=== PATIENT | female | born 1950 | race Caucasian/White ===

== ENCOUNTER → 2018-08-04 21:29 | Outpatient (CLI) | payer MEDICARE | END | disposition home or self-care (01) | LOC: D.MAMMO 10:30 | DX: Z12.31 Encounter for screening mammogram for malignant neoplasm of breast (principal) ==

== ENCOUNTER → 2018-09-01 19:00 | Outpatient (CLI) | payer MEDICARE | END | disposition home or self-care (01) | LOC: D.MAMMO 11:30 | DX: R92.8 Other abnormal and inconclusive findings on diagnostic imaging of breast (principal) ==

== ENCOUNTER 2019-03-09 09:00 | Outpatient (CLI) | payer MEDICARE | END 2019-03-09 10:00 | disposition home or self-care (01) | LOC: D.MAMMO 09:00 | PROVIDERS: ATTEND Family Medicine | DX: R92.8 Other abnormal and inconclusive findings on diagnostic imaging of breast (principal) ==

== ENCOUNTER 2019-10-19 08:00 | Outpatient (CLI) | payer MEDICARE | END 2019-10-19 23:59 | disposition home or self-care (01) | LOC: D.MAMMO 08:00 | PROVIDERS: ATTEND Family Medicine | DX: R92.8 Other abnormal and inconclusive findings on diagnostic imaging of breast (principal) ==

== ENCOUNTER 2020-07-12 09:38 | Inpatient (IN) | payer MEDICARE ==
[~2020-07-12] VITALS: Ht 165.1 cm; Wt 70.8 kg
[2020-07-12 10:43] LABS: BASOPHILS 0.5 % (0-2); HEMATOCRIT 43.1 % (36.0-48.0); HEMOGLOBIN 14.5 g/dL (12-16); IMMATURE GRANULOCYTES 1.9 % (0-5); LYMPHOCYTES 16.9 % (15-50); MCH 31.3 pg (26.0-34.0); MCHC 33.6 g/dL (31.0-37.0); MCV 93.1 fL (80.0-100.0); MEAN PLATELET VOLUME 11.7 fL (7.4-10.4); MONOCYTES 6.8 % (2-11); NEUTROPHILS 72.9 % (40-80); PLATELET COUNT 353 10x3/uL (130-400); RBC 4.63 10x6/uL (4.00-5.40); RDW 12.2 % (11.5-14.5); WBC 12.1 10x3/uL (4.8-10.8)
[2020-07-12 10:58] LABS: ALBUMIN 3.8 g/dL (3.4-5.0); BILIRUBIN - TOTAL 0.63 mg/dL (0.2-1.3); CALCIUM 9.4 mg/dL (8.5-10.1); CARBON DIOXIDE 27.8 mmol/L (21.0-32.0); CREATININE - SERUM 1.2 mg/dL (0.6-1.3); POTASSIUM - SERUM 3.9 mmol/L (3.5-5.1); PROTEIN - SERUM 8.2 g/dL (6.4-8.2)
[2020-07-12 10:59] LABS: BACTERIA MANY /hpf (NEGATIVE); BILIRUBIN NEGATIVE (NEGATIVE); EPITHELIAL CELLS 0-5 /hpf (0-5); GLUCOSE 1000 mg/dL (NEGATIVE); HYALINE CAST RARE /lpf (NONE SEEN); KETONE SMALL mg/dL (NEGATIVE); NITRITE POSITIVE (NEGATIVE); RED CELLS - URINE RARE /hpf (0-5); UROBILINOGEN NORMAL (NORMAL)
[2020-07-12 11:09] LABS: ANION GAP 14.1 mmol/L (8-16)
[2020-07-12 11:18] VITALS: BP 168/97
[2020-07-12 12:14] VITALS: BP 164/93; BMI 26.0
[2020-07-12 18:01] VITALS: BP 166/84
[2020-07-12 21:00] VITALS: BP 195/92
--- NOTE | 2020-07-13 04:18 | NUR ---
I have reviewed this patient and I concur with the Shift Assessment completed by the Licensed Practical Nurse today this shift.
[2020-07-13 07:21] LABS: ANION GAP 9.9 mmol/L (8-16); BILIRUBIN - TOTAL 0.36 mg/dL (0.2-1.3); CALCIUM 8.2 mg/dL (8.5-10.1); CARBON DIOXIDE 25.9 mmol/L (21.0-32.0); CREATININE - SERUM 0.9 mg/dL (0.6-1.3); MAGNESIUM - SERUM 1.8 mg/dL (1.8-2.4); PHOSPHOROUS 2.9 mg/dL (2.5-4.9); POTASSIUM - SERUM 3.8 mmol/L (3.5-5.1)
[2020-07-13 07:25] LABS: ALBUMIN 2.6 g/dL (3.4-5.0)
[2020-07-13] MEDS ORDERED: COLACE100 MG PO (07:46)
[2020-07-13] MEDS ORDERED: DURAGESIC1 EAC4 TRANSDERM (07:47)
[2020-07-13] MEDS ORDERED: GABAPENTIN300 MG PO (07:48)
[2020-07-13] MEDS ORDERED: ADVIL200 MG PO (07:49)
[2020-07-13] MEDS ORDERED: ATIVAN0.5 MG PO (07:50)
[2020-07-13] MEDS ORDERED: TORADOL10 MG PO (07:50)
[2020-07-13] MEDS ORDERED: HYDROCODON-ACE1 EA10 PO (07:51)
[2020-07-13] MEDS ORDERED: SENNA LAXATIVE8.6 MG PO (07:51)
[2020-07-13] MEDS ORDERED: KENALOG IN ORABA5 GM TOPICAL (07:52)
[2020-07-13] MEDS ORDERED: ACETAMINOPHEN325 MG PO (07:52)
[2020-07-13 08:05] LABS: BASOPHILS 0.9 % (0-2); EOSINOPHILS 2.1 % (0-7); HEMATOCRIT 37.1 % (36.0-48.0); HEMOGLOBIN 12.5 g/dL (12-16); IMMATURE GRANULOCYTES 1.4 % (0-5); LYMPHOCYTES 25.8 % (15-50); MCH 31.3 pg (26.0-34.0); MCHC 33.7 g/dL (31.0-37.0); MEAN PLATELET VOLUME 11.9 fL (7.4-10.4); MONOCYTES 6.3 % (2-11); NEUTROPHILS 63.5 % (40-80); RBC 3.99 10x6/uL (4.00-5.40); RDW 12.5 % (11.5-14.5); WBC 9.3 10x3/uL (4.8-10.8)
[2020-07-13 08:06] LABS: PLATELET COUNT 269 10x3/uL (130-400)
[2020-07-13 09:01] VITALS: BP 173/108
[2020-07-13 12:25] VITALS: BP 177/93
[2020-07-13 16:00] VITALS: BP 187/83
--- NOTE | 2020-07-13 18:55 | NUR ---
PATIENT SITTING UP IN CHAIR WITH IV INTACT. NO COMPLAINTS. CALL LIGHT WITHIN REACH.
--- NOTE | 2020-07-13 20:37 | NUR ---
UP IN CHAIR AT BEDSIDE. NO DISTRESS NOTED. NO COMPLAINTS VOICED. RESP UNLABORED.
[2020-07-14] VITALS: BP 187/85
[2020-07-14 04:00] VITALS: BP 180/74
[2020-07-14 05:30] LABS: BASOPHILS 0.3 % (0-2); EOSINOPHILS 1.6 % (0-7); HEMATOCRIT 37.9 % (36.0-48.0); HEMOGLOBIN 12.5 g/dL (12-16); IMMATURE GRANULOCYTES 1.9 % (0-5); LYMPHOCYTES 19.2 % (15-50); MCH 31.1 pg (26.0-34.0); MCV 94.3 fL (80.0-100.0); MEAN PLATELET VOLUME 11.5 fL (7.4-10.4); MONOCYTES 7.9 % (2-11); NEUTROPHILS 69.1 % (40-80); PLATELET COUNT 251 10x3/uL (130-400); RBC 4.02 10x6/uL (4.00-5.40); RDW 12.6 % (11.5-14.5); WBC 9.6 10x3/uL (4.8-10.8)
[2020-07-14 06:02] LABS: CALCIUM 7.7 mg/dL (8.5-10.1); CARBON DIOXIDE 23.9 mmol/L (21.0-32.0); CREATININE - SERUM 0.9 mg/dL (0.6-1.3); MAGNESIUM - SERUM 1.5 mg/dL (1.8-2.4); PHOSPHOROUS 2.3 mg/dL (2.5-4.9); POTASSIUM - SERUM 3.9 mmol/L (3.5-5.1)
[2020-07-14 08:39] VITALS: BP 162/91
--- NOTE | 2020-07-14 09:30 | NUR ---
ASSESSMENT PER FLOW SHEET.PATIENT IS WITHOUT DISTRESS.CALL LIGHT IN REACH.DENIES NEEDS
--- NOTE | 2020-07-14 12:26 | NUR ---
IN AND OUT CATH FOR URINE CX ORDERED. [email or web address] USED
[2020-07-14 12:29] VITALS: BP 191/90
[2020-07-14 13:59] VITALS: Ht 165.1 cm; Wt 70.8 kg
[2020-07-14 17:15] VITALS: BP 167/89
[2020-07-14 20:00] VITALS: BP 166/92
--- NOTE | 2020-07-14 21:40 | NUR ---
SITTING UP IN CHAIR CROCHETING. ALERT AND ORIENTED X4. RESP EVEN AND NONLABORED. DENIES PAIN. AMBULATORY. BRUISE NOTED TO LT KNEE. NO EDEMA. NS @ 20 MLHR INFUSING IN RT FOREARM. DENIES NEEDS. EDUCATED ON DIABETIC DIET. CL IN REACH.
--- NOTE | 2020-07-15 02:26 | NUR ---
HAS RESTED WELL SO FAR THIS SHIFT. LYING ON RT SIDE IN BED WITH EYES CLOSED. RESP NONLABORED. CL IN REACH.
[2020-07-15 04:30] VITALS: BP 184/94
--- NOTE | 2020-07-15 05:40 | NUR ---
LYING IN BED. SLEPT WELL. NO DISTRESS. DENIES NEEDS. CL IN REACH.
[2020-07-15 06:33] LABS: BASOPHILS 0.5 % (0-2); EOSINOPHILS 2.4 % (0-7); HEMOGLOBIN 12.1 g/dL (12-16); IMMATURE GRANULOCYTES 1.8 % (0-5); LYMPHOCYTES 21.9 % (15-50); MCH 30.6 pg (26.0-34.0); MCHC 32.7 g/dL (31.0-37.0); MCV 93.4 fL (80.0-100.0); MEAN PLATELET VOLUME 11.9 fL (7.4-10.4); MONOCYTES 7.6 % (2-11); NEUTROPHILS 65.8 % (40-80); PLATELET COUNT 241 10x3/uL (130-400); RBC 3.96 10x6/uL (4.00-5.40); RDW 12.7 % (11.5-14.5); WBC 9.3 10x3/uL (4.8-10.8)
[2020-07-15 06:59] LABS: ANION GAP 13.1 mmol/L (8-16); CALCIUM 8.1 mg/dL (8.5-10.1); CARBON DIOXIDE 22.5 mmol/L (21.0-32.0); CREATININE - SERUM 0.9 mg/dL (0.6-1.3); MAGNESIUM - SERUM 1.6 mg/dL (1.8-2.4); POTASSIUM - SERUM 3.6 mmol/L (3.5-5.1)
[2020-07-15 07:00] LABS: PHOSPHOROUS 3.2 mg/dL (2.5-4.9)
[2020-07-15 08:00] VITALS: BP 175/100
--- NOTE | 2020-07-15 09:46 | NUR ---
ASSESSMENT PER FLOW SHEET. PATIENT IS WITHOUT DISTRESS.CALL LIGHT IN REACH.
[2020-07-15 13:19] VITALS: BP 168/81
[2020-07-15] MEDS ORDERED: CATAPRES0.1 MG PO (13:56)
[2020-07-15] MEDS ORDERED: FLORAJEN3 CAPS460 MG PO (13:56)
[2020-07-15] MEDS ORDERED: LISINOPRIL10 MG PO (13:56)
[2020-07-15] MEDS ORDERED: GLUCOPHAGE500 MG PO (13:57)
[2020-07-15] MEDS ORDERED: GLUCOTROL 5 MG T5 MG PO (13:57)
[2020-07-15] MEDS ORDERED: LEVOFLOXACIN500 MG PO (14:00)
--- NOTE | 2020-07-15 14:17 | MORECARE ---
CASE MANAGEMENT DISCHARGE SUMMARY PATIENT: SUSAN ROLAND UNIT: [id number] ADM DATE: 07/13/20 AGE: 70 : 48 SEX: F ROOM/BED: D.2216 AUTHOR: ABDULLAHI,DOC PHYSICIAN: REFERRING PHYSICIAN: BRENDAN PAT MD DATE OF SERVICE: 07/15/20 Discharge Plan Patient Name: SUSAN ROLAND Facility: [facility]:[place] : 1950 Planned Disposition: Home or Self Care Anticipated Discharge Date: Discharge Date: Expected LOS: Initial Reviewer: [email or web address] Initial Review Date: 07/12/2020 Generated: 07/15/20 3:17 pm DCP- Discharge Planning Updated by [email or web address]: Donna Martinez on 07/13/20 7:[address] CM met with patient to initiate dc planning. CM educated patient on the CM role and verbal consent given by patient to complete assessment. CM verified patient's address, phone number, and emergency contact phone numbers. Patient lives at home alone, and is independent with her needs. At discharge patient plans to return home and feels this is a safe discharge. CM discussed DM supplies and estimated cost with patient. CM told pt where she can obtain diabetic machine for 10 dollars at [facility], and the estimated cost of lancets and test strips for a month supply. Pt states she can afford this every month. CM will continue to follow and will assist as needed with dc plans/needs. Donna Martinez DCPIA - Discharge Planning Initial Assessment Updated by [id number]: Adwoa Clancy on 07/15/20 2:15 pm * Is the patient Alert and Oriented? Yes * How many steps to enter\exit or inside your home? ELEVATOR * PCP PAR[facility]AN * Pharmacy [facility] * Preadmission Environment Home Alone * ADLs Independent * Equipment None * List name and contact numbers for known caregivers / representatives who currently or will assist patient after discharge: NATE KATRIN [phone] * Verbal permission to speak to the caregivers and representatives has been obtained from the patient. N/A * Community resources currently utilized None * Additional services required to return to the preadmission environment? Yes * Can the patient safely return to the preadmission environment? Yes * Has this patient been hospitalized within the prior 30 days at any hospital? No Coverage Notice Reviewer: [id number] Lamont Martinez Notice Issued Date-Time: 07/13/2020 8:00 Notice Type: Medicare Outpatient Observation Notice Notice Delivered To: Patient Relationship to Patient: Manufacturing Advisor Name: Delivery Method: HAND - Hand Delivered Era Days: Prior Verbal Notification: Recipient Understood Notice: Yes Recipient Signature: Yes Med Rec Note Co-signed by Attending: Coverage Notice Comment: HICKS DELIVERED Patient Name: SUSAN ROLAND Page [id number] at 1417 All edits/amendments must be made on the electronic document DICTATION DATE: 07/15/201416 CRITICAL CARE NURSE: IRIS 07/15/201416 RPT#: [id number] DC DATE: STATUS: ADM IN [facility] [address] [place] [address] END OF REPORT
--- NOTE | 2020-07-15 14:26 | MORECARE ---
CASE MANAGEMENT DISCHARGE SUMMARY PATIENT: SUSAN ROLAND UNIT: [id number] ADM DATE: 07/13/20 AGE: 70 : 48 SEX: F ROOM/BED: D.2216 AUTHOR: ABDULLAHIDOC PHYSICIAN: REFERRING PHYSICIAN: BRENDAN PAT MD DATE OF SERVICE: 07/15/20 Discharge Plan Patient Name: SUSAN ROLAND Facility: [facility]:[place] : 1950 Planned Disposition: Home or Self Care Anticipated Discharge Date: Discharge Date: Expected LOS: Initial Reviewer: [email or web address] Initial Review Date: 07/12/2020 Generated: 07/15/20 3:25 pm Comments DCP- Discharge Planning Updated by [id number]: Adwoa Clancy on 07/15/20 1:[address] PATIENT WILL BE DISCHARGING HOME TODAY, SHE STATED THAT SHE WILL DRIVE HERSELF HOME AND FEELS SAFE TO [facility] HOME. SHE DOES NOT HAVE ANY DME, SHE HAS BEEN GIVEN A SCRIPT TO GO GET A GLUCOMETER AND SHE STATED THAT SHE HAS THE MONEY TO PAY FOR IT. SHE DID NOT THINK SHE NEEDED ANYTHING ELSE. CM TO FOLLOW AND ASSIST NEEDED DCP- Discharge Planning Updated by [id number]: Donna Martinez on 07/13/20 7:[address] CM met with patient to initiate dc planning. CM educated patient on the CM role and verbal consent given by patient to complete assessment. CM verified patient's address, phone number, and emergency contact phone numbers. Patient lives at home alone, and is independent with her needs. At discharge patient plans to return home and feels this is a safe discharge. CM discussed DM supplies and estimated cost with patient. CM told pt where she can obtain diabetic machine for 10 dollars [facility], and the estimated cost of lancets and test strips for a month supply. Pt states she can afford this every month. CM will continue to follow and will assist as needed with dc plans/needs. Donna Martinez DCPIA - Discharge Planning Initial Assessment Updated by [email or web address]: Adwoa Clancy on 07/15/20 2:15 pm * Is the patient Alert and Oriented? Yes * How many steps to enter\exit or inside your home? ELEVATOR * PCP DEUCE * Pharmacy [facility] * Preadmission Environment Home Alone * ADLs Independent * Equipment None * List name and contact numbers for known caregivers / representatives who currently or will assist patient after discharge: NATE WILKES [phone] * Verbal permission to speak to the caregivers and representatives has been obtained from the patient. N/A * Community resources currently utilized None * Additional services required to return to the preadmission environment? Yes * Can the patient safely return to the preadmission environment? Yes * Has this patient been hospitalized within the prior 30 days at any hospital? No Coverage Notice Reviewer: [id number] - Donna Martinez Notice Issued Date-Time: 07/13/2020 8:00 Notice Type: Medicare Outpatient Observation Notice Notice Delivered To: Patient Relationship to Patient: Addictions Counselor Assistant Name: Delivery Method: HAND - Hand Delivered Era Days: Prior Verbal Notification: Recipient Understood Notice: Yes Recipient Signature: Yes Med Rec Note Co-signed by Attending: Coverage Notice Comment: HICKS DELIVERED Last DP export: 07/15/20 1:17 p Patient Name: SUSAN ROLAND Page [id number] at 1426 All edits/amendments must be made on the electronic document DICTATION DATE: 07/15/201424 DRIVER: IRIS 07/15/201424 RPT#: [id number] DC DATE: STATUS: ADM IN [facility] [address] [place] [address] END OF REPORT
--- NOTE | 2020-07-15 15:48 | NUR ---
IV DCD WITH CATH TIP INTACT. DISCHARGE INSTRUCTIONS,STATES UNDERSTANDING. PATIENT GETTING DRESSED FOR TRANSPORT HOME
--- NOTE | 2020-07-15 16:10 | NUR ---
LEFT UNIT VIA WHEELCHAIR FOR TRANSPORT HOME.
--- NOTE | 2020-07-17 13:35 | MORECARE ---
CASE MANAGEMENT DISCHARGE SUMMARY PATIENT: SUSAN ROLAND UNIT: [id number] ADM DATE: 07/13/20 AGE: 70 : 46 SEX: F ROOM/BED: D.2216 AUTHOR: ABDULLAHI,DOC PHYSICIAN: REFERRING PHYSICIAN: BRENDAN PAT MD DATE OF SERVICE: 07/17/20 Discharge Plan Patient Name: SUSAN ROLAND Facility: [facility]:[place] : 1950 Planned Disposition: Home or Self Care Anticipated Discharge Date: Discharge Date: 07/15/2020 Expected LOS: Initial Reviewer: [id number] Initial Review Date: 07/12/2020 Generated: 07/17/20 2:34 pm Comments DCP- Discharge Planning Updated by [email or web address]: Adwoa Clancy on 07/15/20 1:[address] PATIENT WILL BE DISCHARGING HOME TODAY, SHE STATED THAT SHE WILL DRIVE HERSELF HOME AND FEELS SAFE TO [facility] HOME. SHE DOES NOT HAVE ANY DME, SHE HAS BEEN GIVEN A SCRIPT TO GO GET A GLUCOMETER AND SHE STATED THAT SHE HAS THE MONEY TO PAY FOR IT. SHE DID NOT THINK SHE NEEDED ANYTHING ELSE. CM TO FOLLOW AND ASSIST NEEDED DCP- Discharge Planning Updated by [id number]: Donna Martinez on 07/13/20 7:[address] CM met with patient to initiate dc planning. CM educated patient on the CM role and verbal consent given by patient to complete assessment. CM verified patient's address, phone number, and emergency contact phone numbers. Patient lives at home alone, and is independent with her needs. At discharge patient plans to return home and feels this is a safe discharge. CM discussed DM supplies and estimated cost with patient. CM told pt where she can [facility], and the estimated cost of lancets and test strips for a month supply. Pt states she can afford this every month. CM will continue to follow and will assist as needed with dc plans/needs. Donna Martinez DCPIA - Discharge Planning Initial Assessment Updated by [id number]: Adwoa Clancy on 07/15/20 2:15 pm * Is the patient Alert and Oriented? Yes * How many steps to enter\exit or inside your home? ELEVATOR * PCP DEUCE * Pharmacy [facility] * Preadmission Environment Home Alone * ADLs Independent * Equipment None * List name and contact numbers for known caregivers / representatives who currently or will assist patient after discharge: NATE WILKES [phone] * Verbal permission to speak to the caregivers and representatives has been obtained from the patient. N/A * Community resources currently utilized None * Additional services required to return to the preadmission environment? Yes * Can the patient safely return to the preadmission environment? Yes * Has this patient been hospitalized within the prior 30 days at any hospital? No Coverage Notice Reviewer: [id number] Lamont Martinez Notice Issued Date-Time: 07/13/2020 8:00 Notice Type: Medicare Outpatient Observation Notice Notice Delivered To: Patient Relationship to Patient: Shank Pinner Name: Delivery Method: HAND - Hand Delivered Era Days: Prior Verbal Notification: Recipient Understood Notice: Yes Recipient Signature: Yes Med Rec Note Co-signed by Attending: Coverage Notice Comment: HICKS DELIVERED Last DP export: 07/15/20 1:26 p Patient Name: SUSAN ROLAND Page [phone] at 1335 All edits/amendments must be made on the electronic document DICTATION DATE: 07/17/201333 NURSE PRACTITIONER PER DIEM: IRIS 07/17/20 1334 RPT#: [id number] DC DATE:07/15/20 STATUS: DIS IN [facility] [address] [place] [address] END OF REPORT
== END 2020-07-15 16:13 | disposition home or self-care (01) | DRG 638 ==
LOC: D.ER 09:38 → D.MS 10:13 → OBSVTIME 10:13 → D.MS 07-13 17:11
PROVIDERS: Family Medicine; ADMIT Family Medicine; ATTEND Family Medicine
DX: E11.65 Type 2 diabetes mellitus with hyperglycemia (principal); N39.0 Urinary tract infection, site not specified; I10 Essential (primary) hypertension